=== PATIENT | female | born 1940 | race Caucasian/White ===

== ENCOUNTER 2017-08-16 05:30 | Day surgery (SDC) | payer OTHER ==
[~2017-08-16 05:30] MED LIST: COZAAR50 MG PO; KEPPRA1000 MG PO; PROSOM PO; SIMVASTATIN20 MG PO; SYNTHROID50 MCG PO; TRANXENE T-TAB7.5 MG PO
== END 2017-08-16 12:36 | disposition home or self-care (01) ==
LOC: CIR.AMB 05:30
DX: H80.81 Other otosclerosis, right ear (principal)